=== PATIENT | male | born 1975 | race Caucasian/White ===

== ENCOUNTER 2023-09-07 08:40 | Outpatient (AMB) | payer BC, SELFPAY ==
[2023-09-07 08:44] VITALS: BP 122/80; PULSE 71; TEMP 37.1; O2SAT 98; BMI 29.2
--- NOTE | 2023-09-07 08:44 | AM.OFFWIN_ITS ---
Intake Vital Signs 09/07/23 08:44 Height 5 ft 9 in Weight 198 lb BMI 29.2 BP 122/80 Blood Pressure Location Rt brachial Position Sitting Pulse 71 Pulse Source Pulse Oximeter Temp 98.7 F Temp Source Oral Pulse Oximetry (%) 98 Intake Visit Reasons: [employer] chest cold Intake Note: pt is here for cough, chest cold worse at night Patient Tobacco Use Status: Never used Tobacco Allergies No Known Allergies Allergy (Verified 09/07/23 08:45) Do you need a note to return to daycare/school/sports/work: Yes HPI HPI Comments History of Present Illness Details 47 y/o male patient who presents to walk in clinic with c/o URI symptoms x 3 days. He also endorses low grade fever of 99 F. [facility] Social History Patient Tobacco Use Status: Never used Tobacco Review of Systems Const All systems reviewed & are unremarkable except as noted in HPI and below Physical Exam Vital Signs: Last Vital Signs Temp 98.7 F 09/07/23 08:44 Pulse 71 09/07/23 08:44 BP 122/80 09/07/23 08:44 Pulse Ox 98 09/07/23 08:44 BMI result Body Mass Index 29.2 Const General: comfortable and no acute distress Orientation/consciousness: patient oriented x3 HEENT Head: Yes normocephalic Ears: external ears normal and TM abnormal bulging bilateral and with fluid behind the TM bilateral; not perforated and not retracted General nose exam: Abnormal mucous membranes and turbinates present boggy and erythematous Face and sinus: Yes sinuses nontender Mouth: moist mucous membranes Throat: Yes posterior oropharynx normal Resp Effort & Inspection: normal respiratory effort and able to speak in complete sentences Auscultation: clear to auscultation bilaterally, no crackles, no rales, no rhonchi and no wheezes Cardio Rate: regular rate Rhythm: regular rhythm Neuro General: patient oriented x3 Assessment & Plan Assessment & Plan (1) Upper respiratory infection: Code(s): J06.9 - Acute upper respiratory infection, unspecified Qualifiers: URI type: unspecified viral URI Qualified Code(s): J06.9 - Acute upper respiratory infection, unspecified Plan: Rest and hydrate well with warm fluids with honey OTC cold and cugh remedies Acetaminophen for pain and fever relief RTC if not better. Medications: New benzonatate 100 mg PO TID 90 caps 0RF J06.9 - Acute upper respiratory infection, unspecified pseudoephedrine HCl (Sudafed) DNExceed 4 doses/24h 30 mg PO Q4-6H PRN 30 tabs 0RF nasal congestion J06.9 - Acute upper respiratory infection, unspecified Coding Level of Care Code Est Pt Level 3 (23942) Diagnoses Viral upper respiratory tract infection J06.9 URI type: unspecified viral URI Time Spent (min) 15
== END 2023-09-07 09:15 | disposition home or self-care (01) ==
PROVIDERS: PCP Internal Medicine; Visit Provider Nurse Practitioner Family
DX: J06.9 Acute upper respiratory infection, unspecified (principal)
CPT/HCPCS: 99213

== ENCOUNTER 2023-09-09 10:09 | Outpatient (AMB) | payer BC, SELFPAY ==
[2023-09-09 10:28] VITALS: BP 90/52; PULSE 62; TEMP 36.9; O2SAT 97; BMI 29.1
--- NOTE | 2023-09-09 10:28 | MHC.OFFWIV ---
Intake Vital Signs 09/09/23 10:28 Height 5 ft 9 in Weight 197 lb BMI 29.1 BP 90/52 L Blood Pressure Location Rt brachial Position Sitting Pulse 62 Pulse Source Pulse Oximeter Temp 98.4 F Temp Source Oral Pulse Oximetry (%) 97 Oxygen Delivery Method Room Air Intake Visit Reasons: EP Cold symptoms Intake Note: Pt is here today c/o sinus pressure and coughing x6days Patient Tobacco Use Status: Never used Tobacco Allergies No Known Allergies Allergy (Verified 09/09/23 10:37) HPI EP Cold symptoms HPI Details Patient was recently seen for viral illness. Still fatigued and muscle aches and has upper respiratory symptoms including severe nasal congestion and sinus pressure, sore throat, cough. Some fever/chills. PFSH Social History Patient Tobacco Use Status: Never used Tobacco Review of Systems Const Details: See HPI Physical Exam Vital Signs: Last Vital Signs Temp 98.4 F 09/09/23 10:28 Pulse 62 09/09/23 10:28 BP 90/52 L 09/09/23 10:28 Pulse Ox 97 09/09/23 10:28 Oxygen Delivery Method Room Air 09/09/23 10:28 BMI result Body Mass Index 29.1 Const Other: Appears mildly ill General: no acute distress and well developed Nutritional Appearance: well nourished Orientation/consciousness: patient oriented x3 HEENT Other: Significant nasal congestion and discharge with scant blood in discharge Erythema at TMs but no pus or bulging Mild erythema in throat with postnasal drip and cobblestoning but no patchy exudates Head: Yes normocephalic and Yes atraumatic Eyes General: appearance normal, both eyes and all related structures Pupils: Equal, round and reactive pupils present EOM: EOMs intact bilaterally Neck Other: Mild shotty LAD Resp Other: Lungs are clear to auscultation bilaterally Effort & Inspection: normal respiratory effort Auscultation: clear to auscultation bilaterally Cardio Rate: regular rate Rhythm: regular rhythm Heart sounds: S1 normal heart sound present, S2 normal heart sound present, no gallops, no murmurs and no rubs Neuro General: patient oriented x3 and gait normal Cranial nerves: Yes Equal, round and reactive pupils present Psych Affect: normal affect Assessment & Plan Assessment & Plan (1) Sinus infection: Code(s): J32.9 - Chronic sinusitis, unspecified Plan: Patient with sinus pain and pressure, postnasal drip, mild sore throat and cough. Sick contacts at home Likely underlying viral illness however patient has significant sinus pressure and scant blood in nasal discharge. Concern for subsequent bacterial sinus infection. Start Z-Neftali Can use nasal saline flush or patient has used Neti pot before Hydrate well Get plenty of rest Call or return if not improving in a couple of days. (2) Viral illness: Code(s): B34.9 - Viral infection, unspecified Plan: Likely underlying viral illness Can not rule out COVID/flu/RSV. Sending swab to lab and will contact if action required Orders: Orders SARS-CoV2/FLU/RSV Today R05.9 - Cough, unspecified, Z20.822 - Contact with and (suspected) exposure to COVID-19 Medications: New azithromycin (Zithromax Z-Neftali) take 500 mg today (day 1), then 250 mg for 4 days (days 2-5) PO 5 days 6 tabs 0RF Coding Level of Care Code Est Pt Level 3 (28358) Diagnoses Sinus infection J32.9 Viral illness B34.9
== END 2023-09-09 12:08 | disposition home or self-care (01) ==
PROVIDERS: PCP Internal Medicine; Visit Provider Family Medicine
DX: J32.9 Chronic sinusitis, unspecified (principal); B34.9 Viral infection, unspecified
CPT/HCPCS: 99213

== ENCOUNTER 2023-09-09 11:19 | Outpatient (REF) | payer BC, SELFPAY ==
[2023-09-09 13:33] LABS: Influenza A PCR NEGATIVE (Negative); Influenza B PCR NEGATIVE (Negative); Resp Syncy Virus RNA Qual PCR NEGATIVE (Negative); SARS COV2 PCR INHOUSE NEGATIVE (Negative)
== END 2023-09-09 11:20 | disposition home or self-care (01) ==
LOC: HO.LAB 11:19
PROVIDERS: Visit Provider Family Medicine
DX: Z20.822 Contact with and (suspected) exposure to COVID-19 (principal); R05.9 Cough, unspecified
CPT/HCPCS: 0241U

== ENCOUNTER 2024-01-08 08:16 | Outpatient (AMB) | payer BC, SELFPAY ==
--- NOTE | 2024-01-08 08:19 | MHC.OFFWIV ---
Intake Vital Signs 01/08/24 08:20 Weight 202 lb BP 130/90 H Blood Pressure Location Lt brachial Position Sitting Pulse 58 Pulse Source Pulse Oximeter Pulse Oximetry (%) 99 Oxygen Delivery Method Room Air Intake Visit Reasons: EP pain/swelling on head, swollen gland lt side Intake Note: Patient here for red raised area on left side of head that started last week. Pt states it is very painful and throbs and has been having difficulty sleeping because of the pain. Patient Tobacco Use Status: Never used Tobacco Allergies No Known Allergies Allergy (Verified 01/08/24 08:21) Do you need a note to return to daycare/school/sports/work: No HPI EP pain/swelling on head, swollen gland lt side HPI Details This note is constructed using voice recognition software. While every effort has been made to ensure accuracy, sack keeper errors may have been included. The patient is a 48 year old male who presents to the clinic today with rash to his scalp region for the past week. He denies fever, chills, cough, shortness of breath. He does feel that he has some lymph nodes swollen on the left side of his neck. He reports that the area may have come in contact with leaves as he was doing a lot of yd work last week, but he has not had any additional new exposures otherwise. He has not tried anything to improve it. The area is throbbing, as well as slightly itchy. [facility] Social History Patient Tobacco Use Status: Never used Tobacco Review of Systems Const All systems reviewed & are unremarkable except as noted in HPI and below Physical Exam Vital Signs: Last Vital Signs Pulse 58 01/08/24 08:20 BP 130/90 H 01/08/24 08:20 Pulse Ox 99 01/08/24 08:20 Oxygen Delivery Method Room Air 01/08/24 08:20 Const General: cooperative, healthy appearing, comfortable, no acute distress and well developed Orientation/consciousness: patient oriented x3 Limitations: no limitations Neck Neck: Yes full ROM and Yes no lymphadenopathy Resp Effort & Inspection: normal respiratory effort and able to speak in complete sentences Skin Other: Maculopapular rash with slight erythematous base to left side of scalp, no vesicles, drainage, warmth. Neuro General: patient oriented x3 Assessment & Plan Assessment & Plan (1) Rash: Code(s): R21 - Rash and other nonspecific skin eruption Plan: Etiology unclear, will treat for dermatitis in absence of signs of fungal infection, with prednisone taper for anti inflammatory effect. Advised follow up as needed with worsening or failure to improve. Medications: New prednisone 5 tablets daily for 2 days, then 4 tablets daily for 2 days, then 3 tablets daily for 2 days, then 2 tablets daily for 2 days, then 1 tablet daily for 2 days. 10 mg PO DIRECTED 30 tabs 0RF Coding Level of Care Code Est Pt Level 3 (97394) Diagnoses Rash R21
[2024-01-08 08:20] VITALS: BP 130/90; PULSE 58; O2SAT 99
== END 2024-01-08 08:47 | disposition home or self-care (01) ==
PROVIDERS: PCP Internal Medicine; Visit Provider Registered Nurse
DX: R21 Rash and other nonspecific skin eruption (principal)

== ENCOUNTER → 2024-01-08 08:16 | Outpatient (BNVA) | payer BC, SELFPAY | PROVIDERS: PCP Internal Medicine; Visit Provider Registered Nurse ==